=== PATIENT | female | born 1975 | race African-American/Black ===

== ENCOUNTER 2017-09-25 16:54 | Emergency (ER) | payer OTHER ==
[~2017-09-25] VITALS: Ht 170.2 cm; Wt 88.5 kg
[2017-09-25] MEDS ORDERED: NOHOMEMEDICATIONS (17:45)
[2017-09-25] MEDS ORDERED: IBUPROFEN 800800 MG PO (18:52)
[2017-09-25] MEDS ORDERED: NORCO 5-325 TA1 EACH PO (18:52)
[2017-09-25] MEDS ORDERED: CLEOCIN HCL150 MG PO (18:52)
[2017-09-25 19:13] VITALS: BP 144/70
== END 2017-09-25 19:13 | disposition home or self-care (01) ==
LOC: M.ERS 16:54
DX: K04.7 Periapical abscess without sinus (principal); K21.9 Gastro-esophageal reflux disease without esophagitis; J45.909 Unspecified asthma, uncomplicated; Z88.0 Allergy status to penicillin; Z88.8 Allergy status to other drugs, medicaments and biological substances